=== PATIENT | male | born 1930 | race Caucasian/White ===

== ENCOUNTER 2017-09-30 15:11 | Observation (INO) | payer MEDICARE, OTHER ==
[2017-09-30 15:40] LABS: #Eosinphils 0.1 thou/uL (0.0-0.7); #Lymphocytes 0.8 thou/uL (1.20-3.40); #Monocytes 0.5 thou/uL (0.11-0.59); #Neutrophils 7.4 thou/uL (1.40-6.50); %Basophils 0.2 % (0.0-1.0); %Eosinophils 0.6 % (0.0-10.0); %Lymphocytes 9.1 % (21.0-51.0); %Monocytes 6.2 % (0.0-10.0); Hematocrit 34.8 % (42.0-52.0); Mean Platelet Volume 6.9 fL (7.4-10.4); Red Blood Cell (RBC) Count 3.73 mill/uL (4.70-6.10); White Blood Cell (WBC) Count 8.8 thou/uL (4.8-10.8)
[2017-09-30 15:51] LABS: PTT 26.7 SEC (22.9-36.1); Prothrombin Time 14.9 SEC (12.0-14.7)
[2017-09-30 16:02] LABS: ALT (SGPT) 13 U/L (8-55); AST (SGOT) 14 U/L (5-34); Alkaline Phosphatase 48 U/L (40-150); Anion Gap 16 mmol/L (10-20); BUN (Urea Nitrogen) 25 mg/dL (8.4-25.7); Bilirubin, Total 0.5 mg/dL (0.2-1.2); CK (CPK) 55 U/L (30-200); Calc. Creatinine Clearance 0 mL/min (70-130); Calcium 8.7 mg/dL (7.8-10.44); Carbon Dioxide 18 mmol/L (23-31); Chloride 107 mmol/L (98-107); Estimated GFR-MDRD 31; Protein, Total 7.6 g/dL (5.8-8.1)
[2017-09-30 16:04] LABS: Troponin I Less than 0.010 ng/mL (< 0.028)
--- NOTE | 2017-09-30 17:09 | RAD ---
PORTABLE AP CHEST X-RAY 09/30/17 HISTORY: Syncope. Nausea and vomiting. COMPARISON: 12/18/16. FINDINGS: The cardiac silhouette and pulmonary vasculature are within normal limits. A small hiatal hernia is a gain seen at the medial left lung base with adjacent minimal atelectasis. The lungs are otherwise daniela ar. Vascular calcification seen in the thoracic aorta. There has been no interval change when compare d to the prior exam. IMPRESSION: 1. No acute cardiopulmonary process. 2. Small hiatal hernia. POS: [facility]
[2017-09-30 19:34] LABS: Troponin I Less than 0.010 ng/mL (< 0.028)
[2017-09-30] MEDS ORDERED: Acetaminophen 325 MG TAB PO PRN (20:13)
[2017-09-30] MEDS ORDERED: Ondansetron ODT 4 MG TAB PO PRN (20:13)
[2017-09-30] MEDS ORDERED: HYDROcodone/Acetaminophen 5/325 mg Tablet PO PRN (20:13)
[2017-09-30] MEDS ORDERED: HYDROcodone/Acetaminophen 7.5/325 mg Tablet PO PRN (20:13)
[2017-09-30] MEDS: Sodium Chloride 0.9% 1,000 ML IV SCH (20:47)
[2017-09-30] MEDS ORDERED: Donepezil HCl 5 MG TAB PO SCH (21:00)
[2017-09-30] MEDS ORDERED: Terazosin HCl 5 MG CAP PO SCH (21:00)
[2017-09-30] MEDS ORDERED: Famotidine 20 MG TAB PO SCH (21:00)
[2017-09-30 21:56] LABS: Troponin I Less than 0.010 ng/mL (< 0.028)
[2017-09-30 23:03] VITALS: BMI 25.7
--- NOTE | 2017-10-01 00:03 | HP ---
PRIMARY CARE PHYSICIAN: Dr. Filiberto Bo CHIEF COMPLAINT: Spell. HISTORY OF PRESENT ILLNESS: Mr. Mccarthy is a very pleasant 86-year-old gentleman with a history of A lzheimer dementia, BPH, prostate cancer remotely, status post radiation therapy, and past workup for syncope back in 12/2016, who actually has been in really good health until about the last 6 months or so. The family at that time knows he has not been eating or drinking as well and certainly, when he is alone in the evenings and now was making sure that he is having adequate intake. The patient was doing well this morning, he went to lunch with his family, had 1-1/2 glass of wine at [facility] and headed home. While at home, he had 3 episodes of watery diarrhea which he does occa sionally have after the radiation therapy for the prostate cancer, but then vomited which his daughte r admits she has never seen him during the last 25-30 years. 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 He closed his eyes and bec apirl really unresponsive. He was not talking, was not answering questions, and would not open his eye s. He was brought to the emergency department for evaluation and noticed that the mental status seem ed to be basically back to his baseline now. The patient denies any chest pain. No shortness of allen ath, though he has had some increased dyspnea on exertion to his normal activities. No abdominal katheryn n, no cough or hemoptysis, no GI bleeding symptoms. In the emergency department, workup showed labs to be fairly normal except for a creatinine of 2.03, was 1.49 in 12/2016 had a bicarbonate of 18. He is afebrile with stable vital signs, otherwise. PAST MEDICAL HISTORY: 1. Alzheimer's type dementia. 2. Benign prostatic hypertrophy. 3. Prostate cancer. 4. Syncope back in 12/2016. PAST SURGICAL HISTORY: Include radiation therapy to the prostate area. HOME MEDICATIONS: 1. Aricept 5 mg p.o. at bedtime. 2. Terazosin 10 mg p.o. at bedtime. ALLERGIES: NKDA. FAMILY HISTORY: Negative for clotting or bleeding disorder, no immune dysfunction. SOCIAL HISTORY: Negative for habits x3, lives at home with family members. I did discuss with the patient in the presence of his daughter Advance Directives. They do have an A dvance Directive signed but do not have with them. The patient wishes to be a full code, does wish t o be intubated, CPR with chest compressions, electricity, and chemical resuscitation if necessary. Aracelis nazario stated "whatever it takes." His daughter and son both share medical power of attorneyship, though they do not have the documents with them. The daughter is Ceci Pimentel, her phone number is and Ovi Mccarthy is his son, his phone number is [phone]. Until the documents get here, I did explain to the daughter that since Ovi is the oldest child and the patient is a that he is the legal decision maker unless we have a medical power of district attorney to confirm. REVIEW OF SYSTEMS: A 10-point review of systems was performed, negative for all other systems except as stated per HPI. PHYSICAL EXAMINATION: VITAL SIGNS: Temperature 98.2, pulse 73, blood pressure 131/73, respiratory rate 18, satting 98% on room air. GENERAL: He is awake. He is alert. He is oriented x2 to person and place. He is not quite sure wh y he is here. HEENT: Normocephalic, atraumatic. Pupils equal, round, and reactive to light bilaterally, mucous m embranes are moist. He has no visible lesions. No thrush. NECK: Supple without lymphadenopathy, JVD, or thyromegaly with normal carotid upstrokes. LUNGS: Clear. He has no wheezes, no rales, no rhonchi with good air movements, symmetrical chest ex cursion. CARDIOVASCULAR: He has a normal S1 and S2. He has a normal rate and irregular rhythm. He has a mohit nt 2/6 systolic ejection murmur best heard at the left upper sternal border, does not radiate anywher e. ABDOMEN: Soft, is nontender and nondistended. He does have normoactive bowel sounds present in all 4 quadrants. There is no rebound, rigidity, or guarding and no hepatojugular reflux. EXTREMITIES: No cyanosis, no clubbing, no edema. SKIN: Warm, moist, and well perfused without any rashes or lesions. NEUROLOGIC: Cranial nerves II through XII are grossly intact. Strength is 5/5, speech pattern is no rmal, mental status appears at baseline, he has no focal neurologic deficits. MUSCULOSKELETAL: Shows large joints to be normal to inspection. He has good range of motion for his age and no palpable joint effusions or inflammation. LABORATORY DATA: CMP is normal except for bicarbonate of 18, creatinine 2.03, and BUN is 25. Liver functions are normal. INR 1.2, CK-MB is 0.9, CK of 55, and troponin I is negative x2. CBC showed a white count of 8.8, hemoglobin 12.2, hematocrit of 34.8, and platelets 209,000. Chest x-ray shows a small hiatal hernia, but no acute cardiopulmonary disease. ASSESSMENT AND PLAN: 1. Spell: The patient became unresponsive. From starting when he first closed his eyes until he is back to his normal mental status baseline, the daughter says it lasted 20-30 minutes. There was no bowel or bladder incontinence during that time. No tongue biting, no tonic clonic activity. They do not know about any rhythmic eye movements. The patient did seem to wake up but seemed really not be back to his normal responsive self for another 10-15 minutes or so. This certainly could be a synco pal episode, though it seemed to last long. Watch him on the telemetry monitoring and orthostatics, could be a partial seizure. We will monitor him for further episodes. He may need to get an EEG if nothing else is revealing, we are going to possibly do an outpatient Holter monitor. We will get ser ial cardiac biomarkers and again monitor him on telemetry. 2. History of Alzheimer dementia: We will continue his Aricept. 3. Benign prostatic hypertrophy, on terazosin. We will continue. 4. History of prostate cancer as above. The patient is being placed on observation on the telemetry unit.
[2017-10-01 05:53] LABS: #Eosinphils 0.3 thou/uL (0.0-0.7); #Lymphocytes 2.4 thou/uL (1.20-3.40); #Monocytes 0.8 thou/uL (0.11-0.59); #Neutrophils 3.9 thou/uL (1.40-6.50); %Basophils 0.5 % (0.0-1.0); %Eosinophils 3.8 % (0.0-10.0); %Lymphocytes 32.4 % (21.0-51.0); %Monocytes 10.2 % (0.0-10.0); Hematocrit 30.6 % (42.0-52.0); Mean Platelet Volume 6.9 fL (7.4-10.4); Red Blood Cell (RBC) Count 3.28 mill/uL (4.70-6.10); White Blood Cell (WBC) Count 7.3 thou/uL (4.8-10.8)
[2017-10-01 06:18] LABS: Anion Gap 8 mmol/L (10-20); BUN (Urea Nitrogen) 27 mg/dL (8.4-25.7); Calc. Creatinine Clearance 41 mL/min (70-130); Calcium 7.8 mg/dL (7.8-10.44); Carbon Dioxide 22 mmol/L (23-31); Chloride 111 mmol/L (98-107); Estimated GFR-MDRD 42
[2017-10-01 06:20] LABS: Troponin I Less than 0.010 ng/mL (< 0.028)
[2017-10-01] MEDS: Sodium Chloride 0.9% 1,000 ML IV SCH (06:37)
[2017-10-01 15:21] VITALS: BP 108/52; TEMP 98.4
--- NOTE | 2017-10-01 22:06 | DIS ---
DISCHARGE DIAGNOSES: 1. Syncopal episode, likely secondary to orthostatic hypotension. 2. History of Alzheimer's dementia. 3. Benign prostatic hypertrophy. 4. History of prostate cancer. HOSPITAL COURSE: While the patient was in hospital, the patient had orthostatic vitals done, which w ere significantly positive. The patient was significantly dehydrated on exam. The patient was not u rinating much and the urine was very dark orange. After speaking with the family, what we were found that the patient was not drinking much fluids at home. Therefore, the patient was started on IV flu ids while here in the hospital. The patient's urine output began to improve. Urine began to improve significantly from the dark orange color to bright yellow. The patient did not have any more orthos tatic positive vitals during the hospital stay. The patient had received at least 2 liters of fluids . I educated the family on the importance of make sure their father drinks as much fluids as possibl e. They stated they understood. Due to the patient doing significantly better without any significa nt findings with labs with also an improvement in his creatinine from 2.03 to 1.58, I was comfortable discharging the patient home with the appropriate instructions to the family. They had agreed and u nderstood and thankful for further services that we provided. After all questions were answered, the patient will be discharged home in stable condition. DISCHARGE CONDITION: Much improved when he first came in. DISCHARGE ACTIVITY: As tolerated. DISCHARGE DIET: As tolerated with an increasing fluid intake, specifically water. DISCHARGE MEDICATIONS: Please see discharge medication list from the chart. FOLLOWUP APPOINTMENTS: The patient will follow up with primary care physician in 1 week. DISCHARGE PLAN: Discharge planning was greater than 30 minutes.
== END 2017-10-01 16:36 | disposition home or self-care (01) ==
LOC: ERS 15:11 → 2NO 18:17
PROVIDERS: ADMIT Internal Medicine Infectious Disease; ATTEND Internal Medicine Infectious Disease
DX: R55 Syncope and collapse (principal); G30.9 Alzheimer's disease, unspecified; F02.80 Dementia in other diseases classified elsewhere, unspecified severity, without behavioral disturbance, psychotic disturbance, mood disturbance, and anxiety; N40.0 Benign prostatic hyperplasia without lower urinary tract symptoms; Z79.899 Other long term (current) drug therapy; Z85.46 Personal history of malignant neoplasm of prostate; Z92.3 Personal history of irradiation
CPT/HCPCS: 71010; 80048; 80053; 82550; 82553 ×3; 84484 ×3; 85025 ×2; 85610; 85730; 93005; 94760; 96360; 96361 ×2; 97139 ×2; 99285; G0378; G8978; G8979; G8980; 36415

== ENCOUNTER 2018-01-17 17:21 | Inpatient (IN) | payer MEDICARE, OTHER ==
[2018-01-17 17:57] LABS: #Lymphocytes 0.8 thou/uL (1.20-3.40); #Monocytes 0.5 thou/uL (0.11-0.59); #Neutrophils 8.5 thou/uL (1.40-6.50); %Basophils 0.2 % (0.0-1.0); %Eosinophils 0.1 % (0.0-10.0); %Monocytes 5.1 % (0.0-10.0); %Neutrophils 86.6 % (42.0-75.0); Hemoglobin 12.5 g/dL (14.0-18.0); Mean Corpuscular HGB CONC 34.9 g/dL (32.0-36.0); Mean Corpuscular Hemoglobin 31.9 pg (27.0-31.0); Mean Corpuscular Volume 91.6 fl (80.0-94.0); Mean Platelet Volume 6.7 fL (7.4-10.4); Platelet Count 238 thou/uL (130-400); RBC Distribution Width 11.9 % (11.5-14.5); Red Blood Cell (RBC) Count 3.91 mill/uL (4.70-6.10); White Blood Cell (WBC) Count 9.8 thou/uL (4.8-10.8)
[2018-01-17 18:19] LABS: ALT (SGPT) 12 U/L (8-55); AST (SGOT) 12 U/L (5-34); Albumin 3.6 g/dL (3.4-4.8); Alkaline Phosphatase 51 U/L (40-150); Anion Gap 14 mmol/L (10-20); BUN (Urea Nitrogen) 24 mg/dL (8.4-25.7); Bilirubin, Total 0.8 mg/dL (0.2-1.2); Calc. Creatinine Clearance 0 mL/min (70-130); Calcium 8.7 mg/dL (7.8-10.44); Carbon Dioxide 20 mmol/L (23-31); Chloride 104 mmol/L (98-107); Estimated GFR-MDRD 31; Globulin 4.2 g/dL (2.4-3.5); Glucose 170 mg/dL (83-110); Potassium 3.9 mmol/L (3.5-5.1); Protein, Total 7.8 g/dL (5.8-8.1); Sodium 134 mmol/L (136-145)
[2018-01-17] MEDS ORDERED: Acetaminophen 500 MG TAB ONE (20:16)
--- NOTE | 2018-01-17 20:30 | RAD ---
PORTABLE CHEST: 01/17/18 HISTORY: Syncope. Lungs appears clear of infiltrate. Heart and mediastinum unremarkable. Vascular markings unremarkable . Mild interstitial prominence in the lung bases; however, this is stable when compared to exam of 09/08 02/21. IMPRESSION: No acute abnormality. POS: [facility]
[2018-01-17 20:37] LABS: CKMB 0.9 ng/mL (0-6.6); Troponin I Less than 0.010 ng/mL (< 0.028)
[2018-01-17 20:41] LABS: Bilirubin Small (Negative); Blood, Urine Negative (Negative); Clarity CLEAR (Clear); Glucose, Urine (Dipstick) Negative (Negative); Leukocyte Negative (Negative); Nitrite Negative (Negative); Protein, Urine (Dipstick) 30 mg/dL (Neg-Trace); Specific Gravity, Urine 1.028 (1.002-1.036); Urobilinogen 0.2 mg/dL (0.2-1.0); pH, Urine 5.5 (5.0-9.0)
[2018-01-17 20:43] LABS: Bacteria/HPF None Seen HPF (None Seen); Hyaline Casts/LPF 7-10 HYALINE CAST LPF (0-3 Hyaline); Pathc Cast-AUWi Flag 0.81 (0-2.49); RBC/HPF 0-3 HPF (0-3); Squamous Epithelial 0-3 HPF (0-3)
[2018-01-17 20:47] LABS: Magnesium 1.7 mg/dL (1.6-2.6)
--- NOTE | 2018-01-17 20:54 | CT ---
CT HEAD WITHOUT CONTRAST: 01/17/18 Multiple axial tomograms obtained through the head without IV enhancement. HISTORY: Syncope. Ventricles have normal size and position. There is no evidence of mass or infarct. No evidence of hem orrhage. Sinuses and mastoids are well aerated. IMPRESSION: No evidence of acute abnormality. POS: [facility]
[2018-01-17 20:56] LABS: Renal Epithelial 0-3 HPF (0-3); Transitional Epithelial 0-3 HPF (0-3)
[2018-01-17] MEDS ORDERED: Piperacillin/Tazobactam 4.5 GM in Sodium Chloride 0.9% 100 ML IVPB SCH (22:30)
[2018-01-17] MEDS ORDERED: Ondansetron HCl/PF 4 MG/2 ML Vial IVP PRN (22:53)
[2018-01-17] MEDS ORDERED: Acetaminophen 325 MG TAB PO PRN (22:53)
[2018-01-17] MEDS ORDERED: Ondansetron ODT 4 MG TAB PO PRN (22:53)
[2018-01-17] MEDS ORDERED: Milk Of Magnesia 30 ML UDCUP PO PRN (22:53)
[2018-01-17] MEDS ORDERED: Sodium Chloride 0.9% 1,000 ML IV SCH (23:00)
[2018-01-18] MEDS: Piperacillin/Tazobactam 2.25 GM in Sodium Chloride 0.9% 100 ML IVPB SCH ×5 (00:05→23:38)
[2018-01-18] MEDS ORDERED: Terazosin HCl 5 MG CAP PO SCH ×2 (00:45→21:00)
[2018-01-18 01:00] VITALS: BMI 25.7
[2018-01-18 03:16] LABS: #Lymphocytes 1.5 thou/uL (1.20-3.40); #Monocytes 0.6 thou/uL (0.11-0.59); #Neutrophils 10.4 thou/uL (1.40-6.50); %Basophils 0.2 % (0.0-1.0); %Eosinophils 0.1 % (0.0-10.0); %Lymphocytes 11.6 % (21.0-51.0); %Monocytes 5.1 % (0.0-10.0); Hemoglobin 10.1 g/dL (14.0-18.0); Mean Corpuscular HGB CONC 35.2 g/dL (32.0-36.0); Mean Corpuscular Hemoglobin 33.1 pg (27.0-31.0); Mean Corpuscular Volume 93.9 fl (80.0-94.0); Mean Platelet Volume 6.9 fL (7.4-10.4); Platelet Count 201 thou/uL (130-400); RBC Distribution Width 11.8 % (11.5-14.5); Red Blood Cell (RBC) Count 3.05 mill/uL (4.70-6.10); White Blood Cell (WBC) Count 12.6 thou/uL (4.8-10.8)
[2018-01-18 03:33] LABS: Lactic Acid 3.7 mmol/L (0.5-2.2)
[2018-01-18 03:36] LABS: ALT (SGPT) 9 U/L (8-55); AST (SGOT) 12 U/L (5-34); Alkaline Phosphatase 36 U/L (40-150); Anion Gap 13 mmol/L (10-20); BUN (Urea Nitrogen) 24 mg/dL (8.4-25.7); Bilirubin, Total 0.8 mg/dL (0.2-1.2); Calc. Creatinine Clearance 34 mL/min (70-130); Calcium 8.1 mg/dL (7.8-10.44); Carbon Dioxide 18 mmol/L (23-31); Chloride 108 mmol/L (98-107); Estimated GFR-MDRD 34; Globulin 3.2 g/dL (2.4-3.5); Glucose 182 mg/dL (83-110); Potassium 3.9 mmol/L (3.5-5.1); Protein, Total 6.2 g/dL (5.8-8.1); Sodium 135 mmol/L (136-145)
[2018-01-18] MEDS ORDERED: Piperacillin/Tazobactam 2.25 GM in Sodium Chloride 0.9% 100 ML IVPB SCH (06:00)
--- NOTE | 2018-01-18 06:28 | HP ---
PRIMARY CARE PHYSICIAN: Arthur Bo MD PRESENTING COMPLAINT: Vomiting. HISTORY OF PRESENT ILLNESS: This is an 87-year-old male with a past medical history of dementia, pro state cancer status post radiation therapy, who presented to the emergency room after he had several vomiting episodes today. Between 11:00 a.m. and 4:00 p.m., he had 6 episodes of vomiting consisting of recent ingested meals. No history of hematemesis. It was associated with chills, shakes and feel ing lightheadedness. He went to the bathroom and while was in the bathroom, it was unclear if he had a syncopal episode while sitting on the toilet. He was brought to the emergency room where he was f ound to have a temperature of 102 degrees Fahrenheit. He was tachycardic with heart rate of about 10 4 and his lactic acid was 4. CT head was negative for any acute pathology. Chest x-ray showed no in filtrates. Influenza antigen was negative as well. Urinalysis did not reveal any UTI. Chemistry on ly showed elevated creatinine with a glucose of 170. Troponin was less than 0.01. Hematology showed no leukocytosis. Blood cultures were taken and he was started on broad spectrum antibiotics for pre sumed sepsis. PAST MEDICAL HISTORY: Prostate cancer status post radiation therapy, dementia. PAST SURGICAL HISTORY: Cholecystectomy, diskectomy and lower back surgeries, hernia repair. FAMILY HISTORY: Reviewed and noncontributory. SOCIAL HISTORY: He rarely drinks alcohol. Does not smoke cigarettes or use illicit drugs. ALLERGIES: None. HOME MEDICATIONS: Donepezil 5 mg at bedtime, terazosin 5 mg at bedtime. REVIEW OF SYSTEMS: Twelve-point review of systems was done and negative except as stated in HPI. PHYSICAL EXAMINATION: VITAL SIGNS: Within normal limits. HEENT: Normocephalic, atraumatic. Not pale, anicteric. Moist mucous membranes, PERRLA, EOMI. RESPIRATORY: Vesicular breath sounds bilaterally. No wheezes, rales, or rhonchi. CARDIOVASCULAR: S1 and S2 only. Regular rate and rhythm. No murmurs, rubs, or gallops. ABDOMEN: Soft, nontender, nondistended. Bowel sounds positive. No hepatosplenomegaly. MUSCULOSKELETAL: No edema. No skeletal abnormalities. SKIN: Warm, dry, well perfused. NEUROLOGIC: Alert and oriented to person and place. No focal deficits. No weakness. PSYCHIATRIC: Normal mood and affect. LABORATORY DATA: As stated in the HPI. IMAGING: As stated in the HPI. EKG, no signs of acute ischemia. ASSESSMENT AND PLAN: 1. Sepsis. The patient meets sepsis criteria as he was tachycardic, febrile on arrival. Workup for systemic inflammatory response syndrome has been negative. He has received 2 L of IV fluids in the emergency room. Blood cultures have been taken and he is started on broad spectrum antibiotics. We will follow blood cultures and monitor vital signs closely. We will also monitor on telemetry due to unclear whether he had a syncopal episode or not. 2. Benign prostatic hypertrophy. Continue terazosin. 3. Dementia. He had no behavioral issues. We will continue donepezil and ensure delirium precautio ns. 4. Code Status: DO NOT RESUSCITATE. 5. Acute kidney injury. He has been hydrated parenterally. It is unclear if he has a history of ch ronic kidney disease as serum creatinine has ranged between 1.49 and 2.03 in the last year. We will recheck in the morning. We will also repeat lactate level.
--- NOTE | 2018-01-18 08:02 | PDOC.PN ---
- Subjective Encounter Start Date: 01/18/18 Encounter Start Time: 07:00 Subjective: patient and daughter report he is better.last emesis last night. - Objective Vital Signs & Weight: Vital Signs (12 hours) Temp Pulse Resp BP Pulse Ox 01/18/18 04:00 98.7 F 82 18 124/60 98 01/18/18 00:00 98.7 F 77 20 109/58 L 100 01/17/18 23:50 98.7 F 77 20 100 Weight Weight 184 lb 15.485 oz I&O: 01/17/18 01/18/18 01/19/18 06:59 06:59 06:59 Intake Total 1140 Output Total 220 Balance 920 Result Diagrams: 01/18/18 03:00 01/18/18 03:00 Radiology Reviewed by me: Yes Phys Exam - Physical Examination Constitutional: NAD HEENT: PERRLA, moist MMs, sclera anicteric Neck: supple, full ROM Respiratory: no wheezing, no rhonchi, clear to auscultation bilateral Cardiovascular: RRR, no significant murmur Gastrointestinal: soft, non-tender, no distention, positive bowel sounds Musculoskeletal: pulses present, edema present Neurological: non-focal, moves all 4 limbs Psychiatric: normal affect, A&O x 3 Skin: no rash, normal turgor Dx/Plan (1) Gastroenteritis Code(s): K52.9 - NONINFECTIVE GASTROENTERITIS AND COLITIS, UNSPECIFIED Status : Acute (2) Lactic acidosis Code(s): E87.2 - ACIDOSIS Status: Acute (3) Acute kidney failure Status: Acute (4) Alzheimer's dementia Code(s): G30.9 - ALZHEIMER'S DISEASE, UNSPECIFIED Status: Chronic (5) Anemia, normocytic normochromic Code(s): D64.9 - ANEMIA, UNSPECIFIED Status: Chronic (6) BPH (benign prostatic hyperplasia) Code(s): N40.0 - BENIGN PROSTATIC HYPERPLASIA WITHOUT LOWER URINRY TRACT SYMP Status: Chronic (7) Diastolic dysfunction Code(s): I51.9 - HEART DISEASE, UNSPECIFIED Status: Chronic - Plan cont current plan of care, plan discussed w/ family, continue antibiotics patient clinically improved. leukocytosis worse. creatinine improved. venktaesh -: regimen * .
[2018-01-18] MEDS ORDERED: Famotidine 40 MG/4 ML VIAL SLOW IVP SCH (09:00)
[2018-01-18] MEDS: Heparin 5,000 UNITS/ML VIAL SC SCH ×2 (09:33→15:47)
[2018-01-18] MEDS: Docusate 100 MG CAP PO SCH ×2 (10:07→20:36)
[2018-01-18] MEDS ORDERED: Donepezil HCl 5 MG TAB PO SCH (21:00)
[2018-01-18] MEDS ORDERED: Vancomycin HCl 1.25 GM in Sodium Chloride 0.9% 250 ML 250 ML IVPB SCH (22:00)
[2018-01-19] MEDS: Piperacillin/Tazobactam 2.25 GM in Sodium Chloride 0.9% 100 ML IVPB SCH (05:13)
--- NOTE | 2018-01-19 09:55 | PQF ---
CLINICAL DOCUMENTATION IMPROVEMENT CLARIFICATION FORM: ICD-10 Updated PLEASE DO AN ADDENDUM TO THE PROGRESS NOTE WITH ANY DOCUMENTATION UPDATES OR ADDITIONS AND CARRY THROUGH TO DC SUMMARY. THANK YOU. DATE: 01/19 ATTN: DR. HALLIE GRAY Please exercise your independent, professional judgment in responding to the clarification form. Clinical indicators are provided on the bottom of this form for your review. Please check appropriate box(s) to clarify if the following diagnosis has been ruled in or ruled out: SEPSIS [ x ] Ruled in diagnosis [ ] Continue to treat [ x ] Resolved [ ] Ruled out diagnosis [ ] Other diagnosis [ ] Unable to determine For continuity of documentation, please document condition throughout progress notes and discharge summary. Thank You. CLINICAL INDICATORS - SIGNS / SYMPTOMS / LABS ER PRESENTATION 01/17: T: 102 HR: 104 LACTIC ACID: 4 ER PHYSICIAN DIAGNOSIS DOCUMENTATION 01/17: SEPSIS ATTENDING PHYSICIAN H&P DOCUMENTATION 01/17: HX OF PRESENT ILLNESS: ...HE WAS BROUGHT TO THE ED WHERE HE WAS FOUND TO HAVE A TEMP OF 102 DEGREES. HE WAS TACHYCARDIC WITH HR OF ABOUT 104 & HIS LACTIC ACID WAS 4. ...BLOOD CX WERE TAKEN & HE WAS STARTED ON BROAD SPECTRUM ANTIBIOTICS FOR PRESUMED SEPSIS. ASSESSMENT/PLAN: 1) SEPSIS. THE PT MEETS SEPSIS CRITERIA HE WAS TACHYCARDIC, FEBRILE ON ARRIVAL; 5) ACUTE KIDNEY INJURY WBC: 12.6 (01/18) NO FURTHER MENTION OF SEPSIS RISK FACTORS: FEVER RODNEY TREATMENTS: IV ANTIBIOTIC (ZOSYN 01/17 - PRESENT) IVF (NS 01/17) THANK YOU! Gissell (This form is maintained as a part of the permanent medical record) 2014 [employer]. All Rights Reserved Gissell Jimenez RN, BSN [email or web address] Office: [phone] [facility]
[2018-01-19] MEDS: Docusate 100 MG CAP PO SCH ×2 (10:12→10:14)
[2018-01-19 10:38] VITALS: BP 127/59; TEMP 98.6
--- NOTE | 2018-01-19 13:10 | DIS ---
DATE OF ADMISSION: 01/17/2018 DATE OF DISCHARGE: 01/19/2018 PRIMARY DIAGNOSIS: Gastroenteritis, most likely viral in origin. DISCHARGE DIAGNOSES: 1. Gastroenteritis, most likely viral in origin. 2. Dementia. HOSPITAL COURSE: The patient is a pleasant 87-year-old gentleman that presented with intractable tobi sea and vomiting as well as an elevated temperatures up to 102 degrees Fahrenheit. The patient also had lactic acidosis. The patient had no source for his septic picture. The patient was empirically treated with Zosyn and vancomycin. The patient had no emesis during his hospital stay. His white co unt was labile. The patient was stable to walk the halls and had no more nausea and vomiting. He wa s deemed stable for discharge and it was concluded that this was most likely a viral gastroenteritis. DISCHARGE DISPOSITION: To home. DISCHARGE MEDICATIONS: We will resume his home regimen. DISCHARGE DIET: Heart healthy. DISCHARGE ACTIVITY: As tolerated. PHYSICAL EXAMINATION: GENERAL: He was in no acute distress. HEENT: Normocephalic, atraumatic. EYES: PERRL. Extraocular muscles are intact. CARDIAC: Regular rate and rhythm. Systolic ejection murmur 3/6. LUNGS: Clear to auscultation. ABDOMEN: Nontender, nondistended. Normoactive bowel sounds. EXTREMITIES: No clubbing, cyanosis or edema. FOLLOWUP: The patient is to follow up with his PCP within 10 days and presented to the ER if any oth er negative symptoms occur.
== END 2018-01-19 10:38 | disposition home or self-care (01) | DRG 872 ==
LOC: ERS 17:21 → 2NO 23:19
PROVIDERS: ADMIT Internal Medicine; ATTEND Internal Medicine
DX: A41.89 Other specified sepsis (principal); N17.9 Acute kidney failure, unspecified; E87.2 Acidosis; I50.32 Chronic diastolic (congestive) heart failure; A08.4 Viral intestinal infection, unspecified; G30.9 Alzheimer's disease, unspecified; F02.80 Dementia in other diseases classified elsewhere, unspecified severity, without behavioral disturbance, psychotic disturbance, mood disturbance, and anxiety; D64.9 Anemia, unspecified; N40.0 Benign prostatic hyperplasia without lower urinary tract symptoms; E86.0 Dehydration; R55 Syncope and collapse
CPT/HCPCS: 36415; 70450; 71045; 80053; 81003; 81015; 82553; 83605; 83690; 83735; 84484; 85025; 87040; 87086; 87804; 93005; 96361; 96365; A4216; J1644; J2543; J3370; J7050

== ENCOUNTER 2018-07-25 12:41 | Emergency (ER) | payer MEDICARE ==
[2018-07-25] MEDS ORDERED: Ketorolac Tromethamine 30 MG/ML VIAL ONE (13:30)
[2018-07-25] MEDS ORDERED: Methocarbamol 500 MG TAB PO SCH (13:45)
[2018-07-25 13:47] LABS: #Eosinphils 0.1 thou/uL (0.0-0.7); #Lymphocytes 1.2 thou/uL (1.20-3.40); #Monocytes 0.6 thou/uL (0.11-0.59); #Neutrophils 5.9 thou/uL (1.40-6.50); %Basophils 0.2 % (0.0-1.0); %Eosinophils 1.2 % (0.0-10.0); %Monocytes 7.3 % (0.0-10.0); %Neutrophils 76.4 % (42.0-75.0); Hemoglobin 12.2 g/dL (14.0-18.0); Mean Corpuscular HGB CONC 34.8 g/dL (32.0-36.0); Mean Corpuscular Hemoglobin 31.7 pg (27.0-31.0); Mean Corpuscular Volume 91.2 fL (78.0-98.0); Mean Platelet Volume 7.3 fL (7.4-10.4); Platelet Count 248 thou/uL (130-400); RBC Distribution Width 11.5 % (11.5-14.5); Red Blood Cell (RBC) Count 3.86 mill/uL (4.70-6.10); White Blood Cell (WBC) Count 7.7 thou/uL (4.8-10.8)
[2018-07-25 13:58] LABS: ALT (SGPT) 15 U/L (8-55); AST (SGOT) 18 U/L (5-34); Albumin 3.9 g/dL (3.4-4.8); Alkaline Phosphatase 59 U/L (40-150); Anion Gap 17 mmol/L (10-20); BUN (Urea Nitrogen) 27 mg/dL (8.4-25.7); Calc. Creatinine Clearance 0 mL/min (70-130); Calcium 8.9 mg/dL (7.8-10.44); Carbon Dioxide 16 mmol/L (23-31); Chloride 105 mmol/L (98-107); Estimated GFR-MDRD 34; Globulin 5.3 g/dL (2.4-3.5); Glucose 163 mg/dL (83-110); Lipase 26 U/L (8-78); Potassium 3.6 mmol/L (3.5-5.1); Protein, Total 9.2 g/dL (5.8-8.1); Sodium 134 mmol/L (136-145)
[2018-07-25 14:04] LABS: Bilirubin Small (Negative); Blood, Urine Negative (Negative); Clarity CLEAR (Clear); Glucose, Urine (Dipstick) Negative (Negative); Leukocyte Negative (Negative); Nitrite Negative (Negative); Protein, Urine (Dipstick) 30 mg/dL (Neg-Trace); Specific Gravity, Urine 1.031 (1.002-1.036); pH, Urine 5.5 (5.0-9.0)
[2018-07-25 14:06] LABS: Bacteria/HPF None Seen HPF (None Seen); Hyaline Casts/LPF 4-6 HYALINE CAST LPF (0-3 Hyaline); Pathc Cast-AUWi Flag 0.72 (0-2.49); RBC/HPF 0-3 HPF (0-3); Squamous Epithelial 0-3 HPF (0-3); WBC/HPF 0-3 HPF (0-3)
--- NOTE | 2018-07-25 16:11 | RAD ---
LUMBAR SPINE 3 VIEWS: Date: 07/25/18 PROVIDED CLINICAL HISTORY: Low back pain. FINDINGS: Five non-rib bearing lumbar-type vertebral bodies are present. Trace anterolisthesis of L4 on L5. Par tial sacralization of L5 segment left of midline. Vertebral body heights are preserved. Multilevel di sc and facet degenerative changes are seen. Vascular calcifications are noted. IMPRESSION: Lumbar degenerative change without evidence for an acute process. POS: [facility]
== END 2018-07-25 16:30 | disposition home or self-care (01) ==
LOC: ERS 12:41
DX: M54.41 Lumbago with sciatica, right side (principal); Z79.899 Other long term (current) drug therapy
CPT/HCPCS: 72100; 80053; 81003; 81015; 83690; 85025; 87086; 96374; J1885